=== PATIENT | female | born 1990 | race Caucasian/White ===

== ENCOUNTER 2021-11-11 23:56 | Emergency (ER) | payer OTHER ==
[~2021-11-11] VITALS: Ht 165.1 cm; Wt 77.0 kg
[2021-11-12 00:17] VITALS: BP 112/75
[2021-11-12 00:30] VITALS: BP 107/79
[2021-11-12] MEDS ORDERED: XANAX0.25 MG PO (00:38)
[2021-11-12] MEDS ORDERED: WELLBUTRIN100 M2 PO (00:38)
[2021-11-12 01:00] VITALS: BP 104/72
[2021-11-12 01:19] LABS: HEMATOCRIT 36.5 % (37.0-47.0); IMMATURE GRANULOCYTES 0.2 % (0.0-5.0); MEAN CELL VOLUME 92.2 fL CALC (80.0-100.0); MEAN CORPUSCULAR HGB 30.3 pG CALC (26.0-32.0); MEAN CORPUSCULAR HGB CONC 32.9 g/dL CAL (32.0-36.0); NEUT# 3.64 thou/uL (2.00-7.15); RED BLOOD COUNT 3.96 mill/uL (4.20-5.60); RED CELL DISTRI WIDTH 12.4 % (11.5-15.5)
[2021-11-12 01:30] VITALS: BP 108/68
[2021-11-12 01:36] LABS: ALBUMIN 4.1 g/dL (3.2-5.0); ALKALINE PHOSPHATASE 59 u/l (38-126); ANION GAP 9 (6-22 (CALC)); BILIRUBIN, TOTAL 0.3 mg/dL (0.0-1.4); BUN 20 mg/dL (7-17); BUN/CREATININE RATIO 30 (12-20 (CALC)); CARBON DIOXIDE 27 mmol/l (22-30); CHLORIDE 106 mmol/l (95-108); CREATININE 0.7 mg/dL (0.5-1.0); GFR > 60 ML/MIN (>=60 (CALC)); GFR FOR AFR.AMER. > 60 ML/MIN (>=60 (CALC)); POTASSIUM 3.6 mmol/l (3.5-5.1); SGOT/AST 20 u/l (14-36); SODIUM 139 mmol/l (137-146); TOTAL PROTEIN 7.3 g/dL (6.3-8.2)
[2021-11-12 01:48] LABS: MYOGLOBIN 12 ng/mL (0 - 62)
[2021-11-12 02:00] VITALS: BP 101/67
[2021-11-12 02:12] VITALS: BP 101/67
== END 2021-11-12 02:12 | disposition home or self-care (01) | DRG 313 ==
LOC: ED 23:56
PROVIDERS: Emergency Medicine
DX: R07.89 Other chest pain (principal); F41.9 Anxiety disorder, unspecified; Z86.16 Personal history of COVID-19

== ENCOUNTER 2024-06-30 16:06 | Emergency (ER) | payer BC ==
[2024-06-30] VITALS (7 sets, daily range): BP systolic 102–124; BP diastolic 69–91
[~2024-06-30] VITALS: Ht 165.1 cm; Wt 79.0 kg
[~2024-06-30 16:06] MED LIST: ALPRAZOLAM0.25 M1 PO; BUSPAR5 MG PO; BUSPIRONE5 MG PO; WELLBUTRIN XL150 MG PO; WELLBUTRIN100 M2 PO; XANAX0.25 MG PO
[2024-06-30] MEDS ORDERED: PROMETHAZINE HCL 25 MG/ML AMP IV STA (17:39)
[2024-06-30] MEDS ORDERED: LACTATED RINGER'S 1,000 ML IV STA (17:39)
[2024-06-30] MEDS ORDERED: KETOROLAC TROMETHAMINE 30 MG/ML SDV IV STA (17:39)
[2024-06-30] MEDS ORDERED: ISOVUE-300 (Iopamidol) 100 ML SDV IV ONE (17:40)
[2024-06-30 17:41] LABS: URINE BLOOD DIPSTICK Trace-lysed (NEGATIVE); URINE GLUCOSE - DIPSTICK Negative (NEGATIVE); URINE KETONE >=160 mg/dL (NEGATIVE); URINE LEUK ESTERASE Negative (NEGATIVE); URINE NITRITE - DIPSTICK Negative (Negative); URINE PH 5.5 (4.5-8.0); URINE PROTEIN - DIPSTICK 30 mg/dL (NEG-TRACE); URINE SPECIFIC GRAVITY >=1.030; URINE UROBILINOGEN - DIPSTICK 0.2 E.U./dL (0.2)
[2024-06-30 17:42] LABS: URINE COLOR Yellow
[2024-06-30 17:43] LABS: BASO% 0.2 % (0-3); EOS% 0.7 % (0-8); IMMATURE GRANULOCYTES 0.2 % (0.0-5.0); LYMPH% 17.9 % (15-41); MEAN CELL VOLUME 90.3 fL CALC (80.0-100.0); MEAN CORPUSCULAR HGB 30.6 pG CALC (26.0-32.0); MEAN CORPUSCULAR HGB CONC 33.9 g/dL CAL (32.0-36.0); NEUT# 7.39 thou/uL (2.00-7.15); RED BLOOD COUNT 4.97 mill/uL (4.20-5.60); RED CELL DISTRI WIDTH 12.3 % (11.5-15.5)
[2024-06-30 17:45] LABS: HEMATOCRIT 44.9 % (37.0-47.0); HEMOGLOBIN 15.2 g/dl (12.0-16.0)
[2024-06-30 17:48] LABS: URINE SQUAMOUS EPITHELIAL CELL FEW EPI/hpf (0-FEW)
[2024-06-30 17:49] LABS: URINE RBC 0-2 RBC/hpf (0-5); URINE WBC 0-2 WBC/hpf (0-5)
[2024-06-30 17:52] LABS: CREATININE 0.6 mg/dL (0.5-1.0); POTASSIUM 4.3 mmol/l (3.5-5.1); TOTAL PROTEIN 8.7 g/dL (6.3-8.2)
[2024-06-30 17:53] LABS: ALBUMIN 5.2 g/dL (3.2-5.0)
[2024-06-30] MEDS ORDERED: metroNIDAZOLE 500 MG/TAB PO ONE ×2 (19:45→20:25)
[2024-06-30] MEDS ORDERED: CIPROFLOXACIN HCL 500 MG/TAB PO ONE ×2 (19:45→20:25)
[2024-06-30] MEDS ORDERED: MORPHINE SULFATE 4 MG/ML VIAL IV ONE (20:20)
[2024-06-30] MEDS ORDERED: DICYCLOMINE HCL 10 MG/CAP PO ONE (20:20)
[2024-06-30] MEDS ORDERED: DICYCLOMINE HYD10 MG PO ×2 (20:28→20:55)
[2024-06-30] MEDS ORDERED: PROMETHAZINE HY25 M1 PO ×2 (20:38→20:55)
[2024-06-30] MEDS ORDERED: CIPROFLOXACN500 MG PO ×2 (20:38→20:55)
[2024-06-30] MEDS ORDERED: METRONIDAZOLE500 MG PO ×2 (20:38→20:55)
[2024-06-30] MEDS ORDERED: METOCLOPRAMIDE HCL 10 MG/2 ML SDV IV ONE (20:40)
== END 2024-06-30 21:01 | disposition home or self-care (01) | DRG 392 ==
LOC: ED 16:06
PROVIDERS: Nurse Practitioner
DX: R10.32 Left lower quadrant pain (principal); F41.9 Anxiety disorder, unspecified

== ENCOUNTER 2024-07-28 06:56 | Day surgery (SDC) | payer BC ==
[~2024-07-28] VITALS: Ht 165.1 cm; Wt 81.6 kg
[~2024-07-28 06:56] MED LIST changes: +CIPROFLOXACN500 MG PO; +DICYCLOMINE HYD10 MG PO; +METRONIDAZOLE500 MG PO; +PROMETHAZINE HY25 M1 PO
[2024-07-28] MEDS ORDERED: LACTATED RINGER'S 1,000 ML IV ONE (07:02)
[2024-07-28] MEDS ORDERED: STERILE WATER FOR IRRIGATION 1,000 ML BTL IR ONE (07:15)
[2024-07-28] MEDS ORDERED: SODIUM CHLORIDE 0.9% 50 ML IV ONE (07:22)
[2024-07-28] MEDS ORDERED: PROMETHAZINE HCL 25 MG/ML AMP ONE ×2 (07:22→09:15)
[2024-07-28 10:09] VITALS: BP 108/58
[2024-07-28] MEDS ORDERED: PROPOFOL 200 MG/20 ML VIAL IV ONE (13:38)
[2024-07-28] MEDS ORDERED: GLYCOPYRROLATE 0.2 MG/ML IV ONE (13:38)
[2024-07-28] MEDS ORDERED: LIDOCAINE HCL 2% 2ML SDV IV ONE (13:38)
[2024-08-06] MEDS ORDERED: DICYCLOMINE HCL20 MG PO (09:44)
== END 2024-07-28 10:35 | disposition home or self-care (01) | DRG 392 ==
LOC: ORM 06:56 → ENDO 06:56 → ORM 08:00 → ENDO 10:35 → ORM 11:45
PROVIDERS: ATTEND Surgery
PROC: 0DBB8ZX Excision of Ileum, Via Natural or Artificial Opening Endoscopic, Diagnostic (ICD-10-PCS; principal; 2024-07-28)
PROC: 0DBE8ZX Excision of Large Intestine, Via Natural or Artificial Opening Endoscopic, Diagnostic (ICD-10-PCS; 2024-07-28)
DX: R19.7 Diarrhea, unspecified (principal); R10.32 Left lower quadrant pain; K64.8 Other hemorrhoids; F41.9 Anxiety disorder, unspecified; Z80.0 Family history of malignant neoplasm of digestive organs
CPT/HCPCS: J1596; J2550